=== PATIENT | female | born 1955 | race African-American/Black ===

== ENCOUNTER 2022-03-28 19:47 | Inpatient (IN) ==
[2022-03-28] MEDS ORDERED: MORPHINE 2 MG/1 ML SYRINGE IV STA (20:15)
[2022-03-28] MEDS ORDERED: ONDANSETRON 4 MG/2 ML VIAL IV STA (20:15)
[2022-03-28] MEDS ORDERED: methylPREDNISolone SOD SUC 125 MG/2 ML VIAL IV STA (20:15)
[2022-03-28] MEDS ORDERED: FUROSEMIDE 100 MG/10 ML VIAL IV STA (20:15)
[2022-03-28] MEDS ORDERED: ALBUTEROL/IPRATROPIUM 3 ML NEB RESP TX STA (20:15)
[2022-03-28 20:35] LABS: Basophils % 0.3 % (0.0-0.8); Eosinophils # 0.1 10*3/uL (0.0-0.87); Eosinophils % 1.9 % (0.00-10.9); Hematocrit 36.1 VOL% (35.7-47.0); Hemoglobin 10.2 GM/DL (12.0-16.0); Immature Granulocytes % 0.6 %; Immature Granulocytes Absolute 0.04 #; Lymphocytes # 2.1 10*3/uL (1.4-4.0); Lymphocytes % 29.9 % (21.3-54.2); Mean Corpuscular HGB Conc 28.3 GM/DL (32-36); Mean Corpuscular Volume 88.7 FL (87-102); Mean Platelet Volume 11.4 FL (9.6-12.0); Monocytes # 0.7 10*3/uL (0.11-0.8); Monocytes % 10.3 % (1.7-12.7); Platelet Count 246 T/CUMM (130-400); Red Blood Count 4.07 MC/CUMM (3.8-5.5); Red Cell Distribution Width 16.3 % (9.3-17.3)
[2022-03-28 20:41] LABS: INR 0.9; PT Patient Result 10.2 SECS (10.5-12.0)
[2022-03-28 20:54] LABS: Alanine Aminotransferase 28 U/L (13-56); Albumin 2.9 G/DL (3.4-5.0); Alkaline Phosphatase 78 U/L (45-117); Aspartate Amino Transferase 21 U/L (0-37); Bilirubin,Total < 0.39 MG/DL (0.20-1.00); Blood Urea Nitrogen 22 MG/DL (7-18); Calcium 8.7 MG/DL (8.5-10.1); Carbon Dioxide 37 MMOL/L (21-32); Chloride 98 MMOL/L (98-107); Estimated Glom Filtration Rate 52 ML/MIN; Glucose 101 MG/DL (74-106); Osmolality,Calculated 270.2 MOS/KG (273-304); Potassium 4.7 MMOL/L (3.5-5.1); Sodium 134 MMOL/L (136-145); Total Protein 7.2 G/DL (6.4-8.2)
[2022-03-28 20:59] LABS: Eosinophils 1 % (0-10); Lymphocytes 31 % (20-55); Total Cells Counted 100
[2022-03-28 21:00] LABS: Hypochromia 1+; Platelet Estimate Adequate
[2022-03-28 21:34] LABS: Arterial Base Excess iSTAT 10 MMOL/L (-2.5-2.5); Arterial Bicarbonate iSTAT 40.3 MMOL/L (20-26); Arterial O2 Saturation iSTAT 85 % (95-100); Arterial PCO2 iSTAT 87 MM HG (35-48); Arterial PO2 iSTAT 60 MM HG (80-95); Arterial Total CO2 iSTAT 43 MMO/L (23-27); Arterial pH iSTAT 7.275 (7.35-7.45)
[2022-03-28] MEDS ORDERED: DEXTROSE 10% 250 ML BAG IV PRN (22:06)
[2022-03-28] MEDS ORDERED: GLUCAGON 1 MG VIAL IM PRN (22:06)
[2022-03-28] MEDS ORDERED: ONDANSETRON 4 MG/2 ML VIAL IV PRN (22:12)
[2022-03-28] MEDS ORDERED: MORPHINE 2 MG/1 ML SYRINGE IV PRN (22:12)
[2022-03-28] MEDS ORDERED: hydrALAZINE 20 MG/1 ML VIAL IV PRN (22:12)
[2022-03-28] MEDS ORDERED: ACETAMINOPHEN 325 MG TABLET PO PRN (22:12)
[2022-03-28 22:18] LABS: Mucus,Urine Occasional /LPF (Occasional); RBC,Urine <1 /HPF (0-4); Squamous Epithelial Cell,Urine Occasional /HPF (0-10)
[2022-03-28 22:19] LABS: Bilirubin,Urine Negative (Negative); Blood, Urine Negative (Negative); Glucose,Urine (UA) 500 mg/dL (Negative); Ketones,Urine Negative (Negative); Nitrite,Urine Negative (Negative); Protein,Urine 30 mg/dL (Negative); Urine Appearance Clear (Clear); Urine Color Yellow (Yellow); Urine Urobilinogen 0.2 eU/dL (<2.0); Urine pH 5.5 (4.5-8.0)
[2022-03-28 22:28] LABS: Barbiturates Screen,Urine Negative (Negative); Benzodiazepines Screen,Urine Negative (Negative); Cannabinoid Screen,Urine Negative (Negative); Opiate Screen,Urine Negative (Negative); Phencyclidine Screen,Urine Negative (Negative)
[2022-03-29] MEDS: ALBUTEROL/IPRATROPIUM 3 ML NEB RESP TX SCH ×4 (00:22→19:43)
[2022-03-29 03:42] LABS: Arterial Base Excess iSTAT 10 MMOL/L (-2.5-2.5); Arterial O2 Saturation iSTAT 86 % (95-100); Arterial PCO2 iSTAT 79 MM HG (35-48); Arterial PO2 iSTAT 59 MM HG (80-95); Arterial Total CO2 iSTAT 42 MMO/L (23-27); Arterial pH iSTAT 7.314 (7.35-7.45)
[2022-03-29 04:24] LABS: Basophils % 0.3 % (0.0-0.8); Immature Granulocytes % 1.3 %; Lymphocytes # 0.8 10*3/uL (1.4-4.0); Lymphocytes % 11.1 % (21.3-54.2); Mean Corpuscular HGB Conc 27.4 GM/DL (32-36); Mean Corpuscular Volume 90.5 FL (87-102); Mean Platelet Volume 11.3 FL (9.6-12.0); Monocytes # 0.1 10*3/uL (0.11-0.8); Monocytes % 1.8 % (1.7-12.7); Neutrophils % 85.5 % (38.7-73.9); Platelet Count 255 T/CUMM (130-400); Red Blood Count 4.44 MC/CUMM (3.8-5.5); Red Cell Distribution Width 16.3 % (9.3-17.3); White Blood Count 7.4 T/CUMM (4-12)
[2022-03-29 04:29] LABS: Hematocrit 40.2 VOL% (35.7-47.0)
[2022-03-29 05:02] LABS: Calcium 8.8 MG/DL (8.5-10.1); Osmolality,Calculated 277.1 MOS/KG (273-304); Potassium 5.4 MMOL/L (3.5-5.1); Risk Ratio 2.66; Thyroid Stimulating Hormone 1.17 uIU/ml (0.358-3.74); VLDL Cholesterol 12.2 MG/DL
[2022-03-29] MEDS ORDERED: SODIUM POLYSTYRENE SULFATE 15 GM/60 ML BOTTLE PO ONE (08:01)
[2022-03-29] MEDS: PANTOPRAZOLE 40 MG TABLET PO SCH (08:44)
[2022-03-29] MEDS: INSULIN LISPRO 100 UNIT/ML SUBCUT SCH ×4 (08:45→20:19)
[2022-03-29] MEDS: FUROSEMIDE 40 MG/4 ML VIAL IV SCH ×2 (08:47→16:35)
[2022-03-29] MEDS ORDERED: methylPREDNISolone SOD SUC 40 MG/1 ML VIAL IV SCH (09:00)
[2022-03-29 09:43] LABS: Arterial Base Excess iSTAT 11 MMOL/L (-2.5-2.5); Arterial O2 Saturation iSTAT 78 % (95-100); Arterial PCO2 iSTAT 86 MM HG (35-48); Arterial PO2 iSTAT 50 MM HG (80-95); Arterial Total CO2 iSTAT 44 MMO/L (23-27); Arterial pH iSTAT 7.287 (7.35-7.45)
[2022-03-29 12:51] LABS: Arterial Base Excess iSTAT 13 MMOL/L (-2.5-2.5); Arterial Bicarbonate iSTAT 42.5 MMOL/L (20-26); Arterial O2 Saturation iSTAT 86 % (95-100); Arterial PCO2 iSTAT 85 MM HG (35-48); Arterial PO2 iSTAT 60 MM HG (80-95); Arterial Total CO2 iSTAT 45 MMO/L (23-27); Arterial pH iSTAT 7.309 (7.35-7.45)
[2022-03-29] MEDS: methylPREDNISolone SOD SUC 40 MG/1 ML VIAL IV SCH (16:50)
[2022-03-29] MEDS: ENOXAPARIN 40 MG/0.4 ML SYRINGE SUBCUT SCH (20:19)
[2022-03-30] MEDS: ALBUTEROL/IPRATROPIUM 3 ML NEB RESP TX SCH ×4 (00:07→19:40)
[2022-03-30] MEDS: methylPREDNISolone SOD SUC 40 MG/1 ML VIAL IV SCH ×3 (00:13→16:20)
[2022-03-30 03:46] LABS: Arterial Base Excess iSTAT 15 MMOL/L (-2.5-2.5); Arterial Bicarbonate iSTAT 43.4 MMOL/L (20-26); Arterial O2 Saturation iSTAT 94 % (95-100); Arterial PCO2 iSTAT 71 MM HG (35-48); Arterial PO2 iSTAT 75 MM HG (80-95); Arterial Total CO2 iSTAT 46 MMO/L (23-27); Arterial pH iSTAT 7.394 (7.35-7.45)
[2022-03-30 05:11] LABS: Calcium 8.6 MG/DL (8.5-10.1); Osmolality,Calculated 278.2 MOS/KG (273-304); Phosphorous 4.2 MG/DL (2.5-4.9); Potassium 4.5 MMOL/L (3.5-5.1)
[2022-03-30 06:12] LABS: Basophils % 0.1 % (0.0-0.8); Hematocrit 35.6 VOL% (35.7-47.0); Hemoglobin 10.4 GM/DL (12.0-16.0); Immature Granulocytes % 0.7 %; Immature Granulocytes Absolute 0.06 #; Lymphocytes % 11.7 % (21.3-54.2); Mean Corpuscular HGB Conc 29.2 GM/DL (32-36); Mean Corpuscular Volume 85.6 FL (87-102); Monocytes # 0.5 10*3/uL (0.11-0.8); Monocytes % 5.3 % (1.7-12.7); Neutrophils % 82.2 % (38.7-73.9); Platelet Count 258 T/CUMM (130-400); Red Blood Count 4.16 MC/CUMM (3.8-5.5); Red Cell Distribution Width 16.3 % (9.3-17.3); White Blood Count 8.6 T/CUMM (4-12)
[2022-03-30 06:13] LABS: Platelet Estimate Normal
[2022-03-30 06:14] LABS: Anisocytosis 1+; Macrocytosis Slight
[2022-03-30] MEDS: INSULIN LISPRO 100 UNIT/ML SUBCUT SCH ×4 (06:32→21:22)
[2022-03-30] MEDS: FUROSEMIDE 40 MG/4 ML VIAL IV SCH ×2 (08:30→16:20)
[2022-03-30] MEDS: PANTOPRAZOLE 40 MG TABLET PO SCH (08:30)
[2022-03-30] MEDS ORDERED: amLODIPine 5 MG TABLET PO SCH (10:00)
[2022-03-30] MEDS ORDERED: DULAGLUTIDE 4.5 MG/0.5 ML SUBCUT SCH (10:30)
[2022-03-30] MEDS: MEMANTINE 5 MG TABLET PO SCH ×2 (10:50→21:18)
[2022-03-30] MEDS: DULoxetine 30 MG CAPSULE PO SCH (10:50)
[2022-03-30] MEDS: DIVALPROEX 500 MG TABLET PO SCH ×2 (10:50→21:17)
[2022-03-30] MEDS: POLYVINYL ALCOHOL 1.4% OPH SOLN 15 ML BOTTLE BOTH EYES SCH ×2 (12:20→21:16)
[2022-03-30] MEDS: ENOXAPARIN 40 MG/0.4 ML SYRINGE SUBCUT SCH (21:17)
[2022-03-30] MEDS: carvediloL 6.25 MG TABLET PO SCH (21:18)
[2022-03-30] MEDS: BENZTROPINE 1 MG TABLET PO SCH (21:18)
[2022-03-30] MEDS: OLANZapine 2.5 MG TABLET PO SCH (21:18)
[2022-03-30] MEDS: DONEPEZIL 5 MG TABLET PO SCH (21:18)
[2022-03-30] MEDS: BUDESONIDE/FORMOTEROL 160-4.5 INHALER 6 GM INH SCH (21:23)
[2022-03-31] MEDS: methylPREDNISolone SOD SUC 40 MG/1 ML VIAL IV SCH ×3 (01:52→21:42)
[2022-03-31 04:20] LABS: Arterial Base Excess iSTAT 16 MMOL/L (-2.5-2.5); Arterial Bicarbonate iSTAT 44.8 MMOL/L (20-26); Arterial O2 Saturation iSTAT 92 % (95-100); Arterial PCO2 iSTAT 72 MM HG (35-48); Arterial PO2 iSTAT 69 MM HG (80-95); Arterial Total CO2 iSTAT 47 MMO/L (23-27); Arterial pH iSTAT 7.399 (7.35-7.45)
[2022-03-31 05:40] LABS: Basophils % 0.1 % (0.0-0.8); Hematocrit 37.3 VOL% (35.7-47.0); Hemoglobin 11.1 GM/DL (12.0-16.0); Immature Granulocytes % 0.9 %; Immature Granulocytes Absolute 0.08 #; Lymphocytes # 1.7 10*3/uL (1.4-4.0); Lymphocytes % 18.4 % (21.3-54.2); Mean Corpuscular HGB Conc 29.8 GM/DL (32-36); Monocytes # 0.7 10*3/uL (0.11-0.8); Monocytes % 7.5 % (1.7-12.7); Neutrophils % 73.1 % (38.7-73.9); Platelet Count 263 T/CUMM (130-400); Red Blood Count 4.39 MC/CUMM (3.8-5.5); Red Cell Distribution Width 16.6 % (9.3-17.3)
[2022-03-31 06:06] LABS: Calcium 8.6 MG/DL (8.5-10.1); Osmolality,Calculated 279.2 MOS/KG (273-304); Potassium 4.2 MMOL/L (3.5-5.1)
[2022-03-31] MEDS: ALBUTEROL/IPRATROPIUM 3 ML NEB RESP TX SCH ×4 (07:26→19:33)
[2022-03-31] MEDS ORDERED: FUROSEMIDE 40 MG TABLET PO SCH (08:30)
[2022-03-31] MEDS ORDERED: EMPAGLIFLOZIN METFORMIN PO SCH (09:00)
[2022-03-31] MEDS ORDERED: NON-FORMULARY MEDICATION (Peg 400-Propylene Glycol [Systane Ultra] 0.4-0.3 % drops) BOTH EYES SCH (09:00)
[2022-03-31] MEDS: OLANZapine 2.5 MG TABLET PO SCH ×2 (09:53→21:41)
[2022-03-31] MEDS: clonazePAM 0.5 MG TABLET PO SCH (09:53)
[2022-03-31] MEDS: DULoxetine 30 MG CAPSULE PO SCH (09:53)
[2022-03-31] MEDS: amLODIPine 10 MG TABLET PO SCH (09:53)
[2022-03-31] MEDS: MEMANTINE 5 MG TABLET PO SCH ×2 (09:53→21:41)
[2022-03-31] MEDS: PANTOPRAZOLE 40 MG TABLET PO SCH (09:54)
[2022-03-31] MEDS: carvediloL 6.25 MG TABLET PO SCH ×2 (09:54→21:41)
[2022-03-31] MEDS: THEOPHYLLINE ER (24 HR) 400 MG CAPSULE PO SCH (09:54)
[2022-03-31] MEDS: DIVALPROEX 500 MG TABLET PO SCH ×2 (09:54→21:41)
[2022-03-31] MEDS: BENZTROPINE 1 MG TABLET PO SCH ×2 (09:54→21:42)
[2022-03-31] MEDS: INSULIN LISPRO 100 UNIT/ML SUBCUT SCH ×4 (09:55→23:30)
[2022-03-31] MEDS: POLYVINYL ALCOHOL 1.4% OPH SOLN 15 ML BOTTLE BOTH EYES SCH ×2 (09:55→21:41)
[2022-03-31] MEDS: FUROSEMIDE 40 MG/4 ML VIAL IV SCH (09:57)
[2022-03-31] MEDS: FUROSEMIDE 40 MG TABLET PO SCH (16:45)
[2022-03-31] MEDS: BUDESONIDE/FORMOTEROL 160-4.5 INHALER 6 GM INH SCH ×2 (16:46→21:42)
[2022-03-31] MEDS: ENOXAPARIN 40 MG/0.4 ML SYRINGE SUBCUT SCH (21:40)
[2022-03-31] MEDS: DONEPEZIL 5 MG TABLET PO SCH (21:41)
[2022-03-31] MEDS: ROSUVASTATIN 20 MG TABLET PO SCH (21:41)
[2022-04-01] MEDS: ALBUTEROL/IPRATROPIUM 3 ML NEB RESP TX SCH ×4 (00:52→19:23)
[2022-04-01 05:50] LABS: Calcium 8.4 MG/DL (8.5-10.1); Osmolality,Calculated 288.8 MOS/KG (273-304); Potassium 4.1 MMOL/L (3.5-5.1)
[2022-04-01 06:08] LABS: Basophils % 0.1 % (0.0-0.8); Hematocrit 39.7 VOL% (35.7-47.0); Hemoglobin 11.7 GM/DL (12.0-16.0); Immature Granulocytes % 0.8 %; Immature Granulocytes Absolute 0.07 #; Lymphocytes # 1.4 10*3/uL (1.4-4.0); Lymphocytes % 15.8 % (21.3-54.2); Mean Corpuscular HGB Conc 29.5 GM/DL (32-36); Mean Corpuscular Volume 85.6 FL (87-102); Mean Platelet Volume 11.9 FL (9.6-12.0); Monocytes # 0.5 10*3/uL (0.11-0.8); Monocytes % 5.8 % (1.7-12.7); Neutrophils % 77.5 % (38.7-73.9); Platelet Count 279 T/CUMM (130-400); Red Blood Count 4.64 MC/CUMM (3.8-5.5); Red Cell Distribution Width 16.7 % (9.3-17.3); White Blood Count 8.8 T/CUMM (4-12)
[2022-04-01] MEDS: POLYVINYL ALCOHOL 1.4% OPH SOLN 15 ML BOTTLE BOTH EYES SCH ×2 (08:33→20:10)
[2022-04-01] MEDS: THEOPHYLLINE ER (24 HR) 400 MG CAPSULE PO SCH (08:33)
[2022-04-01] MEDS: amLODIPine 10 MG TABLET PO SCH (08:33)
[2022-04-01] MEDS: MEMANTINE 5 MG TABLET PO SCH ×2 (08:33→20:09)
[2022-04-01] MEDS: DULoxetine 30 MG CAPSULE PO SCH (08:33)
[2022-04-01] MEDS: carvediloL 6.25 MG TABLET PO SCH ×2 (08:34→20:09)
[2022-04-01] MEDS: clonazePAM 0.5 MG TABLET PO SCH (08:34)
[2022-04-01] MEDS: OLANZapine 2.5 MG TABLET PO SCH ×2 (08:34→20:09)
[2022-04-01] MEDS: PANTOPRAZOLE 40 MG TABLET PO SCH (08:34)
[2022-04-01] MEDS: BENZTROPINE 1 MG TABLET PO SCH ×2 (08:34→20:09)
[2022-04-01] MEDS: DIVALPROEX 500 MG TABLET PO SCH ×2 (08:34→20:09)
[2022-04-01] MEDS: INSULIN LISPRO 100 UNIT/ML SUBCUT SCH ×4 (08:35→21:45)
[2022-04-01] MEDS: methylPREDNISolone SOD SUC 40 MG/1 ML VIAL IV SCH (08:37)
[2022-04-01] MEDS: FUROSEMIDE 40 MG TABLET PO SCH (08:43)
[2022-04-01] MEDS: BUDESONIDE/FORMOTEROL 160-4.5 INHALER 6 GM INH SCH ×2 (08:44→20:10)
[2022-04-01] MEDS: predniSONE 20 MG TABLET PO SCH (11:29)
[2022-04-01] MEDS: ROSUVASTATIN 20 MG TABLET PO SCH (20:09)
[2022-04-01] MEDS: DONEPEZIL 5 MG TABLET PO SCH (20:09)
[2022-04-01] MEDS: ENOXAPARIN 40 MG/0.4 ML SYRINGE SUBCUT SCH (20:09)
[2022-04-01] MEDS: INSULIN GLARGINE 100 UNIT/ML SUBCUT SCH (21:45)
[2022-04-02] MEDS: ALBUTEROL/IPRATROPIUM 3 ML NEB RESP TX SCH ×4 (00:06→19:14)
[2022-04-02 05:28] LABS: Calcium 8.4 MG/DL (8.5-10.1); Potassium 4.1 MMOL/L (3.5-5.1)
[2022-04-02 05:33] LABS: Basophils % 0.1 % (0.0-0.8); Eosinophils % 0.2 % (0.00-10.9); Hematocrit 41.6 VOL% (35.7-47.0); Hemoglobin 11.9 GM/DL (12.0-16.0); Immature Granulocytes % 0.7 %; Immature Granulocytes Absolute 0.07 #; Lymphocytes % 29.5 % (21.3-54.2); Mean Corpuscular HGB Conc 28.6 GM/DL (32-36); Mean Corpuscular Volume 86.5 FL (87-102); Mean Platelet Volume 12.1 FL (9.6-12.0); Monocytes % 10.3 % (1.7-12.7); Neutrophils % 59.2 % (38.7-73.9); Platelet Count 252 T/CUMM (130-400); Red Blood Count 4.81 MC/CUMM (3.8-5.5); Red Cell Distribution Width 16.3 % (9.3-17.3); White Blood Count 10.1 T/CUMM (4-12)
[2022-04-02] MEDS: OLANZapine 2.5 MG TABLET PO SCH ×2 (09:58→21:04)
[2022-04-02] MEDS: clonazePAM 0.5 MG TABLET PO SCH (09:58)
[2022-04-02] MEDS: amLODIPine 10 MG TABLET PO SCH (09:58)
[2022-04-02] MEDS: MEMANTINE 5 MG TABLET PO SCH ×2 (09:58→21:04)
[2022-04-02] MEDS: BENZTROPINE 1 MG TABLET PO SCH ×2 (09:58→21:04)
[2022-04-02] MEDS: THEOPHYLLINE ER (24 HR) 400 MG CAPSULE PO SCH (09:58)
[2022-04-02] MEDS: FUROSEMIDE 40 MG TABLET PO SCH (09:59)
[2022-04-02] MEDS: predniSONE 20 MG TABLET PO SCH (09:59)
[2022-04-02] MEDS: DIVALPROEX 500 MG TABLET PO SCH ×2 (09:59→21:04)
[2022-04-02] MEDS: DULoxetine 30 MG CAPSULE PO SCH (09:59)
[2022-04-02] MEDS: PANTOPRAZOLE 40 MG TABLET PO SCH (09:59)
[2022-04-02] MEDS: carvediloL 6.25 MG TABLET PO SCH ×2 (09:59→21:55)
[2022-04-02] MEDS: POLYVINYL ALCOHOL 1.4% OPH SOLN 15 ML BOTTLE BOTH EYES SCH ×2 (10:02→21:05)
[2022-04-02] MEDS: BUDESONIDE/FORMOTEROL 160-4.5 INHALER 6 GM INH SCH ×2 (10:02→21:05)
[2022-04-02] MEDS: INSULIN LISPRO 100 UNIT/ML SUBCUT SCH ×4 (10:46→21:05)
[2022-04-02] MEDS: ROSUVASTATIN 20 MG TABLET PO SCH (21:04)
[2022-04-02] MEDS: ENOXAPARIN 40 MG/0.4 ML SYRINGE SUBCUT SCH (21:04)
[2022-04-02] MEDS: DONEPEZIL 5 MG TABLET PO SCH (21:04)
[2022-04-02] MEDS: INSULIN GLARGINE 100 UNIT/ML SUBCUT SCH (21:05)
[2022-04-03] MEDS: ALBUTEROL/IPRATROPIUM 3 ML NEB RESP TX SCH ×2 (00:09→07:00)
[2022-04-03 05:47] LABS: Calcium 8.4 MG/DL (8.5-10.1); Potassium 3.9 MMOL/L (3.5-5.1)
[2022-04-03 06:09] LABS: Basophils % 0.1 % (0.0-0.8); Eosinophils # 0.1 10*3/uL (0.0-0.87); Eosinophils % 0.7 % (0.00-10.9); Hematocrit 40.9 VOL% (35.7-47.0); Hemoglobin 11.9 GM/DL (12.0-16.0); Immature Granulocytes % 0.5 %; Immature Granulocytes Absolute 0.04 #; Lymphocytes # 2.2 10*3/uL (1.4-4.0); Lymphocytes % 26.7 % (21.3-54.2); Mean Corpuscular HGB Conc 29.1 GM/DL (32-36); Mean Corpuscular Volume 85.2 FL (87-102); Mean Platelet Volume 12.9 FL (9.6-12.0); Monocytes # 0.8 10*3/uL (0.11-0.8); Monocytes % 9.5 % (1.7-12.7); Neutrophils % 62.5 % (38.7-73.9); Platelet Count 204 T/CUMM (130-400); Red Cell Distribution Width 16.5 % (9.3-17.3); White Blood Count 8.4 T/CUMM (4-12)
[2022-04-03 06:13] LABS: Hypochromia 1+; Microcytosis 1+; Platelet Estimate Normal; Target Cells Slight
[2022-04-03] MEDS: INSULIN LISPRO 100 UNIT/ML SUBCUT SCH (07:47)
[2022-04-03 09:13] VITALS: BP 148/78
[2022-04-03] MEDS: PANTOPRAZOLE 40 MG TABLET PO SCH (09:37)
[2022-04-03] MEDS: THEOPHYLLINE ER (24 HR) 400 MG CAPSULE PO SCH (09:37)
[2022-04-03] MEDS: DULoxetine 30 MG CAPSULE PO SCH (09:37)
[2022-04-03] MEDS: BENZTROPINE 1 MG TABLET PO SCH (09:37)
[2022-04-03] MEDS: MEMANTINE 5 MG TABLET PO SCH (09:37)
[2022-04-03] MEDS: OLANZapine 2.5 MG TABLET PO SCH (09:37)
[2022-04-03] MEDS: DIVALPROEX 500 MG TABLET PO SCH (09:37)
[2022-04-03] MEDS: amLODIPine 10 MG TABLET PO SCH (09:37)
[2022-04-03] MEDS: carvediloL 6.25 MG TABLET PO SCH (09:37)
[2022-04-03] MEDS: clonazePAM 0.5 MG TABLET PO SCH (09:37)
[2022-04-03] MEDS: FUROSEMIDE 40 MG TABLET PO SCH (09:37)
[2022-04-03] MEDS: predniSONE 20 MG TABLET PO SCH (09:37)
[2022-04-03] MEDS: BUDESONIDE/FORMOTEROL 160-4.5 INHALER 6 GM INH SCH (09:43)
[2022-04-03] MEDS: POLYVINYL ALCOHOL 1.4% OPH SOLN 15 ML BOTTLE BOTH EYES SCH (09:43)
== END 2022-04-03 10:54 | disposition home health service (06) | DRG 205 ==
LOC: N.ED 19:47 → SUATTDRO 22:12 → N.TELES 22:12 → N.ICU 03-29 10:46 → N.TELES 03-30 17:30
PROVIDERS: ADMIT Internal Medicine; ATTEND Internal Medicine